=== PATIENT | female | born 1945 | race Hispanic/Latino ===

== ENCOUNTER 2024-04-26 02:17 | Observation (INO) | payer MEDICARE, OTHER ==
[~2024-04-26] VITALS: Ht 167.6 cm; Wt 74.8 kg
[2024-04-26] VITALS (11 sets, daily range): BP systolic 105–137; BP diastolic 68–70; PULSE 63–69; RESP 12–18; TEMP 98.1–98.4; O2SAT 95–100
[~2024-04-26 02:17] MED LIST: CLONAZEPAM1 M1 PO; LIBRAX1 CAP; LOVENOX30 MG/0.3 SC; Z.0.CRESTOR5 MG; Z.0.LEVOTHYROXINE25; Z.0.PROTONIX40 MG
[2024-04-26 02:54] LABS: BASOPHILS % 0.6 % (0.0-1.0); EOSINOPHILS # (AUTO) 0.1 (0.0-0.4); EOSINOPHILS % 1.7 % (0.0-6.0); HEMATOCRIT 34.6 % (34.2-44.1); HEMOGLOBIN 11.4 g/dL (12.0-16.0); LYMPHOCYTES % 56.8 % (18.0-39.1); MEAN CORPUSCULAR HEMOGLOBIN 32.2 pg (28-32); MEAN CORPUSCULAR HGB CONC 32.9 g/dL (31-35); MEAN CORPUSCULAR VOLUME 97.7 fL (81-99); MONOCYTES # (AUTO) 0.4 (0.2-0.8); MONOCYTES % 8.1 % (4.4-11.3); NEUTROPHILS # (AUTO) 1.7 (2.1-6.9); NEUTROPHILS % 32.4 % (38.7-80.0); PLATELET COUNT 149 x10e3/uL (140-360); RED BLOOD COUNT 3.54 x10e6/uL (3.6-5.1); RED CELL DISTRIBUTION WIDTH 12.3 % (11.7-14.4); WHITE BLOOD COUNT 5.32 x10e3/uL (4.8-10.8)
[2024-04-26 03:09] LABS: ALANINE AMINOTRANSFERASE 10 IU/L (0-55); ALBUMIN 4.2 g/dL (3.5-5.0); ALBUMIN/GLOBULIN RATIO 1.6 (0.8-2.0); ALKALINE PHOSPHATASE 41 IU/L (40-150); ANION GAP 15.3 mmol/L (8-16); BILIRUBIN,TOTAL 0.3 mg/dL (0.2-1.2); BLOOD UREA NITROGEN 20 mg/dL (7-26); BUN/CREATININE RATIO 18 (6-25); CALCIUM 9.6 mg/dL (8.4-10.2); CARBON DIOXIDE 25 mmol/L (22-29); CHLORIDE 104 mmol/L (98-107); CREATINE KINASE 57 IU/L (29-168); CREATININE, SERUM 1.12 mg/dL (0.57-1.11); EST GLOMERULAR FILTRATION RATE 51 ML/MIN (>=60); GLUCOSE 97 mg/dL (74-118); POTASSIUM 4.3 mmol/L (3.5-5.1); SODIUM 140 mmol/L (136-145); TOTAL PROTEIN 6.9 g/dL (6.5-8.1)
[2024-04-26 03:15] LABS: TROPONIN I < 0.001 ng/mL (0-0.300)
[2024-04-26] MEDS: SODIUM CHLORIDE 0.9% 500ML 500 ML IV ONE (05:37)
[2024-04-26] MEDS ORDERED: ONDANSETRON HCL INJ 2MG/ML 2ML 2 MG/ML VIAL IV PRN (05:45)
[2024-04-26] MEDS ORDERED: IOPAMIDOL 370 MG/ML 100 ML INFUS..BTL INJ ONE (07:18)
[2024-04-26] MEDS ORDERED: HYDROXYZINE HCL 10 MG TAB PO PRN (08:00)
[2024-04-26 12:00] LABS: TROPONIN I 0.002 ng/mL (0-0.300)
[2024-04-26] MEDS: MAGNESIUM HYDROXIDE 30 ML UDC PO ONE ×2 (14:23)
[2024-04-26] MEDS ORDERED: HYDROXYZINE HCL10 MG PO (16:22)
[2024-04-26] MEDS ORDERED: MELOXICAM7.5 MG PO (16:22)
[2024-04-26] MEDS ORDERED: ENOXAPARIN SOD INJ 40 MG/0.4 ML SYR SC SCH (17:00)
[2024-04-26 18:17] LABS: CREATINE KINASE 51 IU/L (29-168)
[2024-04-26 18:32] LABS: TROPONIN I < 0.001 ng/mL (0-0.300)
== END 2024-04-26 18:59 | disposition home or self-care (01) ==
LOC: ER 03:44 → ERHOLD 05:42 → MED/SURG2 12:05
PROVIDERS: ADMIT Internal Medicine; ATTEND Internal Medicine
DX: R07.89 Other chest pain (principal); N17.9 Acute kidney failure, unspecified; R42 Dizziness and giddiness; D64.9 Anemia, unspecified; R20.0 Anesthesia of skin; R20.2 Paresthesia of skin; R26.9 Unspecified abnormalities of gait and mobility; R94.31 Abnormal electrocardiogram [ECG] [EKG]; E78.2 Mixed hyperlipidemia; M79.7 Fibromyalgia; K21.9 Gastro-esophageal reflux disease without esophagitis; K57.30 Diverticulosis of large intestine without perforation or abscess without bleeding; M19.91 Primary osteoarthritis, unspecified site; Z11.52 Encounter for screening for COVID-19; Z79.899 Other long term (current) drug therapy
CPT/HCPCS: 36415; 70450; 70496; 70498; 71045; 80053; 82550; 84484; 85025; 93005; 94799; 97116; 97161; 99285; G0378; J7040; Q9967; U0002